=== PATIENT | male | born 1940 | race Caucasian/White ===

== ENCOUNTER 2017-04-15 13:25 | Emergency (ER) | payer OTHER ==
[~2017-04-15 13:25] MED LIST: ALLOPOW4 XX; GLIPPOW9 XX; LOVA10TA; METFPOW8 XX; TECTURNA; Z.0.UNKNOWN
[2017-04-15 13:36] VITALS: BP 162/77; PULSE 90; RESP 16; TEMP 98.7; O2SAT 93
[2017-04-15] MEDS ORDERED: ACETAMINOPHEN 325 MG TAB PO ONE (15:15)
[2017-04-15] MEDS ORDERED: METF1000 PO (15:22)
[2017-04-15] MEDS ORDERED: VITA1000 PO (15:22)
[2017-04-15] MEDS ORDERED: ASPI-516 CHEW (15:22)
[2017-04-15] MEDS ORDERED: ATOR10TA15 PO (15:22)
[2017-04-15] MEDS ORDERED: AMLO5TAB2 PO (15:22)
[2017-04-15] MEDS ORDERED: GLIP10TA6 PO (15:22)
[2017-04-15] MEDS ORDERED: GABA300C5 PO (15:22)
[2017-04-15] MEDS ORDERED: FELO10TA PO (15:22)
[2017-04-15] MEDS ORDERED: TAMS0.4C4 (15:22)
[2017-04-15] MEDS ORDERED: ALLO100T PO (15:22)
[2017-04-15] MEDS ORDERED: LOSA100T2 PO (15:22)
[2017-04-15] MEDS ORDERED: CLON0.2T PO (15:22)
[2017-04-15] MEDS ORDERED: CYAN1000P IM (15:22)
[2017-04-15] MEDS ORDERED: OSELTAMIVIR PHOSPHATE 75 MG CAP PO ONE (15:30)
[2017-04-15] MEDS ORDERED: OSEL75 PO (15:55)
[2017-04-15] MEDS ORDERED: MAGICADU2 SWISH-SWAL (15:55)
[2017-04-15] MEDS ORDERED: BENZ100 PO (15:55)
--- NOTE | 2017-04-15 15:59 | PD ---
HPI Chief Complaint: Cold / Flu Symptoms Time Seen by Provider: 14:48 Travel History International Travel<30 days: No Contact w/Intl Traveler<30days: No Traveled to known affect area: No History of Present Illness HPI 77-year-old male that presents to the ED for evaluation of cold symptoms and body aches. Per patient she's had this for 2 days. No sick contacts. Per patient the body aches and chills or ongoing. He also states having a sore throat and congestion and cough. He did not get the flu shot this year. No history of COPD or asthma. No shortness of breath or chest pain. This pain per patient is 7 out of 10 mainly [address]. He is not taking anything for this. He has not seen anybody for this. No recent travel. PFSH Past Medical History Cancer: Yes (SKIN) Cardiovascular Problems: Yes (htn on meds) High Cholesterol: Yes Diabetes: Yes (type 2) Patient Takes Glucophage: Yes Gout: Yes Hypertension: Yes Past Surgical History Other Surgery: Yes (SKIN CA REMOVED) Social History Alcohol Use: Yes (1 DAILY) Tobacco Use: No Substance Use: No Allergies-Medications (Allergen,Severity, Reaction): Coded Allergies: penicillin G (Unverified Allergy, Unknown, 04/15/17) Reported Meds & Prescriptions Reported Meds & Active Scripts Active Tamiflu (Oseltamivir Phosphate) 75 Mg Cap 75 Mg PO BID 5 Days Tessalon Perles (Benzonatate) 100 Mg Cap 200 Mg PO TID PRN Magic Mouthwash Adult Liq (Multi-Ingredient Mouthwash/Gargle) 120 Ml Susp 5 Ml SWISH-SWAL ACHS Each 5mL contains: Nystatin 200,000units, Diphenhydramine 4.25mg, Viscous Lidocaine 10mg, Bay syrup 0.8 mL Reported Felodipine ER (Felodipine) 10 mg Chinedu 10 Mg PO DAILY Vitamin D-1000 (Cholecalciferol) 1,000 Unit Tab 1,000 Units PO DAILY Tamsulosin (Tamsulosin HCl) 0.4 Mg Cap 0.4 Mg HS Metformin (Metformin HCl) 1,000 Mg Tab 1,000 Mg PO BIDPC Losartan-Hydrochlorothiazide 100-25 Mg Tab 1 Tab PO DAILY Glipizide 10 Mg Tab 10 Mg PO BIDAC Take 30 minutes before a meal Gabapentin 300 Mg Cap 300 Mg PO BID Cyanocobalamin Inj (Cyanocobalamin) 1,000 Mcg/Ml Inj 1,000 Mcg IM ONCE Clonidine (Clonidine HCl) 0.2 Mg Tab 0.2 Mg PO BID Atorvastatin (Atorvastatin Calcium) 10 Mg Tab 10 Mg PO HS Aspirin 81 Mg Chew 81 Mg CHEW DAILY Amlodipine (Amlodipine Besylate) 5 Mg Tab 5 Mg PO DAILY Allopurinol 100 Mg Tab 100 Mg PO DAILY Review of Systems Except as stated in HPI: all other systems reviewed are Neg Physical Exam Narrative GENERAL: Well-nourished, well-developed patient in no apparent distress. SKIN: Warm and dry. HEAD: Atraumatic. Normocephalic. EYES: Pupils equal and round reactive to light and accommodation. No scleral icterus. No injection or drainage. ENT: No nasal bleeding or discharge. Mucous membranes pink and moist. TMs are clear with no sign of infection or perforation. No mastoid tenderness. Ear canals are intact bilaterally. No lymphadenopathy. Nostril mucosa is red and moist with clear mucus noted. No sinus tenderness to palpation noted. Tonsils are not enlarged or swollen. No ulvua Deviation. Tongue is midline. NECK: Trachea midline. No JVD. No meningeal signs noted CARDIOVASCULAR: Regular rate and rhythm. RESPIRATORY: No accessory muscle use. Clear to auscultation. Breath sounds equal bilaterally. GASTROINTESTINAL: Abdomen soft, non-tender, nondistended. Hepatic and splenic margins not palpable. MUSCULOSKELETAL: Extremities without clubbing, cyanosis, or edema. No obvious deformities. NEUROLOGICAL: Awake and alert. No obvious cranial nerve deficits. Motor grossly within normal limits. Five out of 5 muscle strength in the arms and legs. Normal speech. PSYCHIATRIC: Appropriate mood and affect; insight and judgment normal. Data Data Last Documented VS Vital Signs Date Time Temp Pulse Resp B/P (MAP) Pulse Ox O2 Delivery O2 Flow Rate FiO2 04/15/17 13:36 98.7 90 16 162/77 (105) 93 Orders Orders Influenzae A/B Antigen (04/15/17 15:01) Chest, Single Ap (04/15/17 ) Acetaminophen (Tylenol) (04/15/17 15:15) Oseltamivir (Tamiflu) (04/15/17 15:30) MDM Medical Decision Making Medical Screen Exam Complete: Yes Emergency Medical Condition: Yes Medical Record Reviewed: Yes Interpretation(s) influenza positive CXR negative Differential Diagnosis Influenza versus pneumonia versus URI versus sinusitis Narrative Course 77-year-old male that presents to the ED for evolution of cold like symptoms. Patient was properly examined and was found to have signs and symptoms very consistent what appears to be influenza. Chest x-ray and flu test were done. Chest x-ray was negative for pneumonia but flu test was positive for influenza. Patient was given Tylenol and Tamiflu here. Patient given prescriptions for this. Patient given prescriptions for Tessalon Perles and Magic mouthwash. Told to follow up with PCP. Rest and lots of fluids. See ED for worsening symptoms. Diagnosis Primary Impression: Influenza Patient Instructions: General Instructions Additional Instructions: Motrin and Tylenol for pain and fever. You can use regu-[id number]-taoxnym antihistamine as well as well as Mucinex as needed for runny nose and congestion. Cough drops for cough as needed. Drink plenty of fluids. Follow-up with PCP. See ED for worsening symptoms. Med/Other Pt SpecificInfo: Prescription(s) given Scripts Oseltamivir (Tamiflu) 75 Mg Cap 75 MG PO BID for Mgmt Viral Infection for 5 Days, #10 CAP 0 Refills Prov: Maurice Davis MD 04/15/17 Benzonatate (Tessalon Perles) 100 Mg Cap 200 MG PO TID Y for COUGH, #20 CAP 0 Refills Prov: Maurice Davis MD 04/15/17 Tjhjxazo-Kjmpjdzpewwuxsv-Xdsrpzrqr Liq (Magic Mouthwash Adult Liq) 120 Ml Susp 5 ML SWISH-SWAL ACHS for Mouth sores, #120 ML 0 Refills Each 5mL contains: Nystatin 200,000units, Diphenhydramine 4.25mg, Viscous Lidocaine 10mg, Bay syrup 0.8 mL Prov: Maurice Davis MD 04/15/17 Disposition: 01 DISCHARGE HOME Condition: Stable John Wright Apr 15, 2017 15:59
--- NOTE | 2017-04-15 16:26 | RADRPT ---
EXAM DATE/TIME: 04/15/2017 16:19 [facility] COMPARISON: No previous studies available for comparison. INDICATIONS : Cough, chest pain MEDICAL HISTORY : Diabetes mellitus type II. SURGICAL HISTORY : None. ENCOUNTER: Initial ACUITY: 1 day PAIN SCORE: 8/10 LOCATION: Bilateral chest FINDINGS: A single view of the chest demonstrates the lungs to be symmetrically aerated without evidence of mas s, infiltrate or effusion. The cardiomediastinal contours are unremarkable. Osseous structures are intact. CONCLUSION: No acute disease. Naveen Hdz MD on April 15, 2017 at 16:24 Board Certified Radiologist. This report was verified electronically.
== END 2017-04-15 16:50 | disposition home or self-care (01) ==
LOC: PHED 13:25 → PHEFT 16:50
DX: J10.1 Influenza due to other identified influenza virus with other respiratory manifestations (principal); I10 Essential (primary) hypertension; E78.00 Pure hypercholesterolemia, unspecified; E11.9 Type 2 diabetes mellitus without complications; Z79.84 Long term (current) use of oral hypoglycemic drugs
CPT/HCPCS: 71045; 87804; 99284